=== PATIENT | female | born 1965 | race Caucasian/White ===

== ENCOUNTER 2021-12-17 11:08 | Emergency (ER) | payer MEDICARE, MEDICAID ==
[2021-12-17] MEDS ORDERED: Aspirin Chewable 81 MG TAB PO SCH (12:30)
[2021-12-17 12:34] LABS: #Eosinphils 0.2 10x3/uL (0.0-0.5); #Monocytes 0.5 10x3/uL (0.0-1.1); %Basophils 0.8 % (0.0-2.0); %Eosinophils 4.5 % (0.0-6.0); %Lymphocytes 31.3 % (18.0-47.0); %Monocytes 12.3 % (0.0-10.0); %Neutrophils 50.6 % (40.0-75.0); Hemoglobin 14.4 g/dL (12.0-15.5); Mean Corpuscular Volume 91.2 fl (81.6-98.3); Mean Platelet Volume 9.7 fl (7.4-10.4); Platelet Count 175 10x3/uL (150-450); RBC Distribution Width 12.4 % (11.5-14.5); Red Blood Cell (RBC) Count 4.64 10x6/uL (3.90-5.03)
[2021-12-17 12:52] LABS: ALT (SGPT) 65 U/L (8-55); AST (SGOT) 56 U/L (5-34); Albumin 4.3 g/dL (3.5-5.0); Alkaline Phosphatase 63 U/L (40-110); Anion Gap 13 mmol/L (10-20); BUN (Urea Nitrogen) 14 mg/dL (9.8-20.1); Bilirubin, Total 0.6 mg/dL (0.2-1.2); Calc. Creatinine Clearance 0 mL/min (70-130); Calcium 9.2 mg/dL (7.8-10.44); Carbon Dioxide 26 mmol/L (22-29); Chloride 103 mmol/L (98-107); Globulin 2.8 g/dL (2.4-3.5); Glucose 116 mg/dL (70-105); Lipase 7 U/L (8-78); Potassium 4.1 mmol/L (3.5-5.1); Protein, Total 7.1 g/dL (6.0-8.3); Sodium 138 mmol/L (136-145)
== END 2021-12-17 13:40 | disposition home or self-care (01) ==
LOC: CSHERS 11:08
DX: R07.9 Chest pain, unspecified (principal); M79.632 Pain in left forearm; F41.9 Anxiety disorder, unspecified; R11.0 Nausea; I10 Essential (primary) hypertension; J44.9 Chronic obstructive pulmonary disease, unspecified; Z87.891 Personal history of nicotine dependence
CPT/HCPCS: 71045; 80053; 83690; 83880; 84484; 85025; 93005; 94760

== ENCOUNTER 2022-10-10 11:16 | Emergency (ER) | payer OTHER, MEDICAID ==
[2022-10-10 12:46] LABS: SARS-CoV-2 NAA Rapid Test Not Detected (NotDetected)
[2022-10-10] MEDS ORDERED: methylPREDNISolone Sod Succ/PF 125 MG/2 ML VIAL ONE (13:47)
== END 2022-10-10 13:56 | disposition home or self-care (01) ==
LOC: CSHERS 11:16
DX: J18.9 Pneumonia, unspecified organism (principal); J44.9 Chronic obstructive pulmonary disease, unspecified; I10 Essential (primary) hypertension; Z20.822 Contact with and (suspected) exposure to COVID-19; Z87.891 Personal history of nicotine dependence
CPT/HCPCS: 0240U; 71045; 96372; J2930

== ENCOUNTER 2023-04-26 10:11 | Emergency (ER) | payer OTHER, MEDICAID | END 2023-04-26 11:45 | disposition home or self-care (01) | LOC: CSHERS 10:11 | DX: M25.511 Pain in right shoulder (principal); J44.9 Chronic obstructive pulmonary disease, unspecified; I10 Essential (primary) hypertension; Z87.891 Personal history of nicotine dependence | CPT/HCPCS: 93005 ==

== ENCOUNTER 2023-04-27 10:49 | Emergency (ER) | payer OTHER, MEDICAID | END 2023-04-27 11:50 | disposition home or self-care (01) | LOC: CSHERS 10:49 | DX: M25.511 Pain in right shoulder (principal); F43.0 Acute stress reaction; E78.5 Hyperlipidemia, unspecified; J44.9 Chronic obstructive pulmonary disease, unspecified; I10 Essential (primary) hypertension; Z79.891 Long term (current) use of opiate analgesic | CPT/HCPCS: 71045; 93005 ==

== ENCOUNTER 2024-10-29 15:36 | Outpatient (CLI) | payer OTHER | END 2024-10-29 15:37 | disposition home or self-care (01) | LOC: CSHCP 15:36 | PROVIDERS: ATTEND Internal Medicine | DX: R06.09 Other forms of dyspnea (principal); J44.9 Chronic obstructive pulmonary disease, unspecified | CPT/HCPCS: 94060; 94618; 94664; 94726; 94729 ==

== ENCOUNTER 2024-12-18 08:30 | Outpatient (CLI) | payer OTHER, MEDICAID | END 2024-12-18 08:31 | disposition home or self-care (01) | LOC: CSHSLEEP 08:30 | PROVIDERS: ATTEND Internal Medicine | DX: G47.33 Obstructive sleep apnea (adult) (pediatric) (principal) | CPT/HCPCS: 95811 ==